=== PATIENT | female | born 1960 | race Two or more races ===

== ENCOUNTER 2021-04-10 19:57 | Inpatient (IN) | payer OTHER ==
[~2021-04-10] VITALS: Ht 154.9 cm; Wt 77.1 kg
[2021-04-10] MEDS ORDERED: SYNTHROID75 MCG (20:19)
--- NOTE | 2021-04-10 20:25 | NUR ---
PTE ALERTA Y ORIENTADA X 3 ESFERAS EN COMPANIA DE FAMILIAR,SE OBSERVA CON FATIGA,NO HABLA EN ORACIONES COMPLETAS,SATURANDO 93%,REFIERE ASMA POR 3 SUAREZ.
--- NOTE | 2021-04-10 20:26 | NUR ---
SE PRESENTA A DR SIMS Y SE UBICA EN AU.
--- NOTE | 2021-04-10 21:32 | NUR ---
EVALUA PTE. SE EDUCA A PTE SOBRE TX MEDICO. PTE REFIERE COMPRENDER. SE REALIZAN MUESTRAS DE LABORATORIO BAJO MEDIDAS ASEPTICAS. SE ADMINISTRAN MEDICAMENTOS PEDRO LUIS ORDEN MEDICA. SE NOTIFICAN ABG Y TERAPIA RESPIRATORIA.
--- NOTE | 2021-04-11 00:38 | NUR ---
PACIENTE ALERTA Y ORIENTADA EN ALBERTINA DENAE ESFERAS EN COMPANIA DE FAMILIAR. H/L PATENTE CHEYENNE DE EDEMA Y ERITEMA. PENDIENTE RE-EVALUACION MEDICA.
--- NOTE | 2021-04-11 07:00 | NUR ---
SE RECIBE PACIENTE DE TURNO ANTERIOR, ALERTA Y ORIENTADA EN TIEMPO LUGAR Y PERSONA. CON BARANDAS ELEVADAS Y FRENOS AJUSTADOS POR SEGURIDAD. CON VENOPUNCION PATENTE, CHEYENNE DE ERITEMA Y EDEMA, AL MOMENTO EN S/L. RECIBIENDO OXIGENO MEDIANTE CANULA NASAL A 3LTS. PENDIENTE CONSULTA CON DRA. CRAIG. SE MANTIENE PACIENTE EN OBSERVACION POR CAMBIOS EN PERKINS CONDICION.
== END 2021-04-19 19:13 | disposition home or self-care (01) | DRG 203 ==
LOC: ER 19:57 → MEDJ 04-11 09:38 → SEC-K 04-11 09:38 → MEDJ 04-11 15:35
PROVIDERS: ADMIT Internal Medicine; ATTEND Internal Medicine
PROC: 3E0F7SF Introduction of Other Gas into Respiratory Tract, Via Natural or Artificial Opening (ICD-10-PCS; 2021-04-11)
PROC: 3E0F73Z Introduction of Anti-inflammatory into Respiratory Tract, Via Natural or Artificial Opening (ICD-10-PCS; 2021-04-11)
PROC: 02HV33Z Insertion of Infusion Device into Superior Vena Cava, Percutaneous Approach (ICD-10-PCS; principal; 2021-04-16)
DX: J45.902 Unspecified asthma with status asthmaticus (principal); R06.02 Shortness of breath; Z20.822 Contact with and (suspected) exposure to COVID-19; Z87.891 Personal history of nicotine dependence